=== PATIENT | male | born 1955 | race Two or more races ===

== ENCOUNTER 2024-05-19 11:30 | Inpatient (IN) | payer OTHER ==
[~2024-05-19] VITALS: Ht 167.6 cm; Wt 80.3 kg
[2024-05-19 12:42] VITALS: BP 140/90
[2024-05-19] MEDS ORDERED: COZAAR50 MG PO (13:01)
[2024-05-19] MEDS ORDERED: METFORMIN HCL500 M3 PO (13:01)
[2024-05-19] MEDS ORDERED: NORVASC10 MG PO (13:02)
[2024-05-19] MEDS ORDERED: GLIPIZIDE XL5 MG PO (13:02)
[2024-05-19] MEDS ORDERED: LOZOL PO (13:03)
[2024-05-25] MEDS ORDERED: PERCOCET 5-3251 EACH PO (11:14)
[2024-05-25] MEDS ORDERED: COLACE100 MG PO (11:14)
[2024-05-25] MEDS ORDERED: MEDROLPACK PO (11:14)
[2024-05-25] MEDS ORDERED: PROMETHAZINE HCL 50 MG/ML AMPUL IM PRN (11:15)
[2024-05-25] MEDS ORDERED: ENALAPRILAT DIHYDRATE 1.25 MG/ML VIAL IV PRN (11:15)
[2024-05-25] MEDS ORDERED: 0.9 % SODIUM CHLORIDE 1,000 ML IV SCH (11:15)
[2024-05-25] MEDS ORDERED: MORPHINE SULFATE 4 MG/ML VIAL IV SCH (13:00)
[2024-05-25] MEDS ORDERED: DOCUSATE SODIUM 100MG CAP PO SCH (13:00)
[2024-05-25] MEDS ORDERED: MORPHINE SULFATE 4 MG,MORPHINE SULFATE 2 MG IV SCH ×2 (13:00)
[2024-05-25] MEDS ORDERED: METHYLPREDNISOLONE SOD SUCC 125 MG VIAL IV ONE ×2 (14:45)
[2024-05-25] MEDS ORDERED: HEMOSTATIC MATRIX WITH THROMBIN KIT TOP ONE (14:45)
[2024-05-25] MEDS ORDERED: CEFAZOLIN SODIUM 1,000 MG VIAL IV SCH (14:45)
[2024-05-25] MEDS ORDERED: VANCOMYCIN HCL 1,000 MG VIAL IV SCH (14:45)
[2024-05-25] MEDS ORDERED: VANCOMYCIN HCL 1,000 MG VIAL IR ONE (14:45)
[2024-05-25] MEDS ORDERED: METHYLPREDNISOLONE ACETATE 80 MG/ML VIAL IJ ONE (15:45)
[2024-05-25] MEDS ORDERED: MORPHINE SULFATE 4 MG/ML VIAL IV ONE ×2 (16:20→16:50)
[2024-05-25] MEDS ORDERED: FAMOtidine 20 MG TABLET PO SCH (17:00)
[2024-05-25] MEDS ORDERED: CEFAZOLIN SODIUM 1,000 MG in 0.9 % SODIUM CHLORIDE 50 ML IV SCH (17:00)
[2024-05-25] MEDS ORDERED: METHYLPREDNISOLONE SOD SUCC 125 MG VIAL IV SCH (17:00)
[2024-05-25 18:42] VITALS: BP 146/60; O2SAT 94
[2024-05-25] MEDS ORDERED: DEXTROSE 50 % IN WATER 0.5 G/ML DISP.SYRIN IV PRN (19:30)
[2024-05-25] MEDS ORDERED: INSULIN LISPRO 1,000 UNIT/10 ML UNITS SUBCUTANEO PRN (19:30)
[2024-05-25] MEDS ORDERED: INDAPAMIDE 1.25 MG TABLET PO SCH (21:00)
[2024-05-25] MEDS ORDERED: VANCOMYCIN HCL 1,000 MG in 0.9 % SODIUM CHLORIDE 250 ML IV SCH (21:00)
[2024-05-26] MEDS ORDERED: SODIUM CHLORIDE 0.45 % 1,000 ML IV SCH
[2024-05-26 00:20] VITALS: BP 148/87; O2SAT 96
[2024-05-26 04:00] VITALS: BP 139/74; O2SAT 97
[2024-05-26] MEDS ORDERED: OxyCODONE HCL/APAP UD (PERCOCET) PO PRN (06:01)
[2024-05-26 08:52] VITALS: BP 128/75; O2SAT 97
[2024-05-26] MEDS ORDERED: TAMSULOSIN HCL 0.4 MG CAP PO SCH (09:00)
[2024-05-26] MEDS ORDERED: AMLODIPINE BESYLATE 10 MG TABLET PO SCH ×2 (09:00→21:00)
[2024-05-26] MEDS ORDERED: LOSARTAN POTASSIUM 50 MG TABLET PO SCH (09:00)
[2024-05-26] MEDS ORDERED: MetFORMIN HCL 500 MG TABLET PO SCH (09:00)
[2024-05-26] MEDS ORDERED: GLIPIZIDE 5 MG PO SCH (09:00)
== END 2024-05-26 12:01 | disposition home or self-care (01) | DRG 473 ==
LOC: O/R 05-25 09:38 → SURH 05-25 11:30 → PED 05-25 15:22 → SURH 05-25 16:45 → PED 05-26 12:01
PROVIDERS: ADMIT Orthopaedic Surgery Orthopaedic Surgery of the Spine; ATTEND Orthopaedic Surgery Orthopaedic Surgery of the Spine
PROC: 0RT30ZZ Resection of Cervical Vertebral Disc, Open Approach (ICD-10-PCS; 2024-05-25)
PROC: 07DS0ZZ Extraction of Vertebral Bone Marrow, Open Approach (ICD-10-PCS; 2024-05-25)
PROC: 4A1104G Monitoring of Peripheral Nervous Electrical Activity, Intraoperative, Open Approach (ICD-10-PCS; 2024-05-25)
PROC: 0RG20A0 Fusion of 2 or more Cervical Vertebral Joints with Interbody Fusion Device, Anterior Approach, Anterior Column, Open Approach (ICD-10-PCS; principal; 2024-05-25 16:45)
DX: M50.021 Cervical disc disorder at C4-C5 level with myelopathy (principal); M50.022 Cervical disc disorder at C5-C6 level with myelopathy; M50.023 Cervical disc disorder at C6-C7 level with myelopathy; M48.02 Spinal stenosis, cervical region; E11.9 Type 2 diabetes mellitus without complications; I10 Essential (primary) hypertension; G47.33 Obstructive sleep apnea (adult) (pediatric); Z79.84 Long term (current) use of oral hypoglycemic drugs